=== PATIENT | male | born 1980 | race Caucasian/White ===

== ENCOUNTER 2017-03-02 03:02 | Emergency (ER) | payer OTHER ==
[2017-03-02] MEDS ORDERED: KETOROLAC TROMETHAMINE 60 MG/2 ML VIAL ONE (03:28)
--- NOTE | 2017-03-02 04:15 | ER PHYSICIAN DOCUMENTATION ---
Physician Documentation [facility] Name:Mir Oviedo Age:36 yrs Sex:Male :1980 Arrival Date:03/02/2017 Time:03:02 Bed4 Private MD:Physician, No ED Vinay Saenz Disposition: 03/02/17 04:04 Discharged to Home/Self Care. Impression: Acute Back Pain, Myofascial Lumbar Strain. - Condition is Good. - Discharge Instructions: BACK PAIN (Acute or Chronic), BACK SPRAIN/STRAIN. - Prescriptions for Cyclobenzaprine 10 mg Oral Tablet - take 1 tablet by ORAL route every 8 hours; 30 tablet. - Medical Reconciliation form form. - Follow up: Private Physician; When: 7 - 10 days; Reason: Recheck today's complaints, Continuance of care. - Problem is new. - Symptoms have improved. - Notes: Drink 2 - 3 quarts of water every day. Bedrest for 1 - 2 days. Ibuprofen 600mg by mouth every 6 hours with food for 4 - 5 days. (next dose 9:00 AM) Flexeril (Cyclobenzaprine) 10mg by mouth every 8 hours as needed for muscle spasm (next dose 6:00 AM) HPI: 03/02 03:15 This 36 yrs old Male presents to ER via Walk In with complaints of Right Low cd Back Pain. 03:15 The patient presents with pain that is acute, and decreased range of motion. The cd symptoms are located in the low back, right low back. The pain does not radiate. The problem was sustained at home, when lifting. Onset: The symptoms/episode began/occurred acutely, yesterday. Associated signs and symptoms: The patient has no apparent associated signs or symptoms. Historical: - Allergies: Zithromax Z-Darnell; - Tetanus: < 10 years. - Ebola Screening: : Patient negative for fever greater than or equal to 101.5 degrees Fahrenheit, and additional compatible Ebola Virus Disease symptoms. Patient denies exposure to infectious person. Patient denies travel to an Ebola-affected area in the 21 days before illness onset. No symptoms or risks identified at this time. . - Immunization history: Flu Vaccine None. - Social history: Smoking status: Patient states was never smoker of tobacco. ROS: 03:15 Neck: Negative for injury, pain, stiffness and swelling. cd Cardiovascular: Negative for chest pain, palpitations, edema and pleuritic pain. Respiratory: Negative for shortness of breath, dyspnea on exertion, cough, sputum production, wheezing, hemoptysis and pleuritic chest pain. Abdomen/GI: Negative for abdominal pain, nausea, vomiting, diarrhea, constipation, distension, melena, hematochezia and hematemesis. : Negative for injury, bleeding, discharge, swelling, dysuria, frequency or urgency. MS/Extremity: Negative for injury, deformity, edema, calf tenderness, pain or coldness. 03:15 Neuro: Negative for headache, weakness, numbness, tingling, and seizure. cd 03:15 Constitutional: Positive for poor PO intake, Negative for chills, fever. 03:15 Back: Positive for pain at rest, pain with movement, Negative for radiated pain. 03:15 All other systems are negative. Exam: Head/Face: Normocephalic, atraumatic. ENT: Nares patent. No nasal discharge, no septal abnormalities noted. Tympanic membranes are normal and external auditory canals are clear. Oropharynx with no redness, swelling, or masses, exudates, or evidence of obstruction, uvula midline. Mucous membranes moist. Neck: Trachea midline, no thyromegaly or masses palpated, and no cervical lymphadenopathy. Supple, full range of motion without nuchal rigidity, or vertebral point tenderness. No Meningismus. Chest/axilla: Normal chest wall appearance and motion. Nontender with no deformity. No lesions are appreciated. Cardiovascular: Regular rate and rhythm with a normal S1 and S2. No gallops, murmurs, or rubs. Normal PMI, no JVD. No pulse deficits. Respiratory: Lungs have equal breath sounds bilaterally, clear to auscultation and percussion. No rales, rhonchi or wheezes noted. No increased work of breathing, no retractions or nasal flaring. Abdomen/GI: Soft, non-tender, with normal bowel sounds. No distension or tympany. No guarding or rebound. No evidence of tenderness throughout. Skin: Warm, dry with normal turgor. Normal color with no rashes, no lesions, and no evidence of cellulitis. MS/ Extremity: Pulses equal, no cyanosis. Neurovascular intact. Full, normal range of motion. 03:30 Neuro: Awake and alert, GCS 15, oriented to person, place, time, and situation. cd Cranial nerves II-XII grossly intact. Motor strength 5/5 in all extremities. Sensory grossly intact. Cerebellar exam normal. Normal gait. 03:30 Constitutional: The patient appears alert, awake, non-diaphoretic, non-toxic, well developed, well nourished, in obvious distress, moderately distressed. 03:30 Back: pain, that is moderate, of the right low back, ROM is painful, with all movement, decreased, normal spinal alignment noted, CVA tenderness, is absent, muscle spasm, is appreciated in the right low back, Straight leg raises: of both lower extremities does not illicit pain. Vital Signs: 03:07 BP 126 / 69; Pulse 70; Resp 18; Temp 97.9(O); Pulse Ox 93% on R/A; Weight 86.18 kg; bw2 Height 6 ft. 2 in. (187.96 cm); Pain 8/10; 03:07 Body Mass Index 24.39 (86.18 kg, 187.96 cm) bw2 Tricia Coma Score: 03:30 Eye Response: spontaneous(4). Verbal Response: oriented(5). Motor Response: obeys cd commands(6). Total: 15. MDM: 04:00 Data reviewed: vital signs, nurses notes, old medical records, and as a result, I will cd discharge patient. Data interpreted: Pulse oximetry: on room air is 93 %. Interpretation: normal. Counseling: I had a detailed discussion with the patient and/or guardian regarding: the historical points, exam findings, and any diagnostic results supporting the discharge/admit diagnosis, the need for outpatient follow up, for a recheck, with the patient's primary care provider, to return to the emergency department if symptoms worsen or persist or if there are any questions or concerns that arise at home. Response to treatment: the patient's symptoms have markedly improved after treatment, the patient's condition has returned to base line, and as a result, I will discharge patient. 04:02 Patient medically screened. cd 03/02 04:02 Order name: Ice Packs; Complete Time: 04:04 cd Dispensed Medications: 03:21 Drug: Toradol 60 mg; Route: IM; Site: left deltoid; bw2 04:14 Follow up: Response: No adverse reaction; Pain is decreased bw2 04:06 Drug: Cyclobenzaprine 1 tablet; Route: PO; 2 04:06 Follow up: Response: Pharmacy closed - take home med pack 2 Point of Care Testing: Urine Dip: 03:31 pH: 6.5; ; Specific [place]: 1.025; Ketones: Negative; Glucose: Negative; Protein: bw2 Negative; Leukocytes: Negative; Nitrite: Negative ; Blood: Negative; Bilirubin: Negative ; Urobilinogen: Normal Signatures: Vinay Gusman MD MD cd Wisely, Beth 2
--- NOTE | 2017-03-02 04:15 | ER NURSING DOCUMENTATION ---
Nurse's Notes [facility] Name:Mir Oviedo Age:36 yrs Sex:Male :1980 Arrival Date:03/02/2017 Time:03:02 Bed4 Private MD:Physician, No Diagnosis:Acute Back Pain;Myofascial Lumbar Strain Presentation: 03/02 03:05 Presenting complaint: Patient states: right sided lower back pain x 2 days. pain bw2 increases with movement. pt denies pain with urination ot frequency. Transition of care: patient was not received from another setting of care. 03:05 Acuity: ESCOBAR 3 bw2 03:05 Method Of Arrival: Walk In 2 03:11 Notified ED Physician of patient's arrival and CC Dr. Gusman notified. bw2 Triage Assessment: 03:06 General: Appears in no apparent distress, uncomfortable, Behavior is appropriate for bw2 age. Pain: Complains of pain in right lower back Pain began 2-3 days ago Aggravated by increased activity. Historical: - Allergies: Zithromax Z-Darnell; - Tetanus: < 10 years. - Ebola Screening: : Patient negative for fever greater than or equal to 101.5 degrees Fahrenheit, and additional compatible Ebola Virus Disease symptoms. Patient denies exposure to infectious person. Patient denies travel to an Ebola-affected area in the 21 days before illness onset. No symptoms or risks identified at this time. . - Immunization history: Flu Vaccine None. - Social history: Smoking status: Patient states was never smoker of tobacco. Screenin:08 Infectious Disease Risk None. Abuse screen: Denies threats or abuse. Nutritional bw2 screening: No deficits noted. Assessment: 03:08 See Triage Assessment done by same RN. : No deficits noted. Denies burning with bw2 urination, cramping discharge, inability to void, incontinence, pain urinary frequency. Vital Signs: 03:07 BP 126 / 69; Pulse 70; Resp 18; Temp 97.9(O); Pulse Ox 93% on R/A; Weight 86.18 kg; bw2 Height 6 ft. 2 in. (187.96 cm); Pain 8/10; 03:07 Body Mass Index 24.39 (86.18 kg, 187.96 cm) bw2 Tricia Coma Score: 03:30 Eye Response: spontaneous(4). Verbal Response: oriented(5). Motor Response: obeys cd commands(6). Total: 15. ED Course: 03:03 Patient arrived in ED. em2 03:03 Physician, Kristan is Private Physician. em2 03:04 Clarita Gipson is Primary Nurse. bw2 03:06 Triage completed. bw2 03:08 Valuables Remains with patient Patient has correct armband on for positive bw2 identification. Bed in low position. 04:02 Vinay Gusman MD is Attending Physician. cd Administered Medications: 03:21 Drug: Toradol 60 mg; Route: IM; Site: left deltoid; bw2 04:14 Follow up: Response: No adverse reaction; Pain is decreased bw2 04:06 Drug: Cyclobenzaprine 1 tablet; Route: PO; bw2 04:06 Follow up: Response: Pharmacy closed - take home med pack bw2 Point of Care Testing: Urine Dip: 03:31 pH: 6.5; ; Specific [place]: 1.025; Ketones: Negative; Glucose: Negative; Protein: bw2 Negative; Leukocytes: Negative; Nitrite: Negative ; Blood: Negative; Bilirubin: Negative ; Urobilinogen: Normal Outcome: 04:04 Discharge ordered by MD. kerr 04:14 Discharged to home ambulatory. bw2 04:14 Condition: good 04:14 Discharge Assessment: Patient awake, alert and oriented x 3. No cognitive and/or functional deficits noted. Patient verbalized understanding of disposition instructions. 04:14 Discharge instructions given to patient, Instructed on discharge instructions, follow up and referral plans. medication usage, no drinking with medication, Demonstrated understanding of instructions, medications, Prescriptions given X 1. 04:14 Patient left the ED. bw2 Signatures: Vinay Gusman MD MD cd Meinking-reg, Nila-reg em2 Clarita Gipson bw2
[2017-03-02] MEDS ORDERED: CYCLOBENZAPRINE HCL 10 MG TABLET PO ONE (04:19)
== END 2017-03-02 04:15 | disposition home or self-care (01) ==
LOC: ER 03:02
DX: S39.012A Strain of muscle, fascia and tendon of lower back, initial encounter (principal); M62.830 Muscle spasm of back
CPT/HCPCS: 96372; 99283; J1885